=== PATIENT | male | born 1945 | race Caucasian/White ===

== ENCOUNTER 2020-08-27 16:40 | Emergency (ER) | payer OTHER, MEDICAID ==
[~2020-08-27] VITALS: Ht 165.1 cm; Wt 70.3 kg
[2020-08-27 16:46] VITALS: BP 118/89
--- NOTE | 2020-08-27 16:51 | NUR ---
PT W/C ASSISTED TO BED 8.
--- NOTE | 2020-08-27 16:58 | NUR ---
PT CAME IN C/O LEFT KNEE PAIN. PRESENTS WITH SWELLING FOR 2 WEEKS. PT STATED HE FLEW TO [facility] FOR TREATMENT. HIS DOCTOR STATED THAT BY DRAWING AND INJECTING BLOOD INTO HIS KNEE, IT WOULD BUILD CARTILAGE. PT HAS BEEN TAKING TYLENOL FOR PAIN. RATES PAIN 10/10, DOES NOT RADIATE ANYWHERE, FEELS LIKE ITS THROBBING. VISIBLE AND PALPABLE SWELLING. NO SIGNIFICANT MEDICAL HISTORY, NKA. NO SOB, COUGH, CHEST PAIN, OR OTHER COVID SYMPTOMS. SKIN IS INTACT, PT ABLE TO AMBULATE BUT HAS EXTREME PAIN WITH MOVEMENT. PULSES ARE EVEN AND INTACT, PERFUSION BILTAERAL FEET.
--- NOTE | 2020-08-27 17:00 | NUR ---
Dr. Pierson is evaluating the patient at bedside.
[2020-08-27] MEDS ORDERED: LIDOCAINE MPF 1% 10 MG/ML VIAL INJ ONE (17:10)
--- NOTE | 2020-08-27 19:15 | NUR ---
Report received from SARAH Banerjee for continuation of care.
[2020-08-27 19:21] LABS: APPEARANCE,UNSPUN,BODY FLUID HAZY (CLEAR); SPECIMENTYPE,BODY FLUID SYNOVIAL
[2020-08-27 19:22] LABS: APPEARANCE,SPUN,BODY FLUID CLEAR (CLEAR); COLOR,BODY FLUID LT YELLOW (LT YELLOW)
[2020-08-27 19:23] LABS: RBC, BODY FLUID 36 /cu. mm.; TOTAL VOLUME,BODY FLUID 40 mL; WBC, BODY FLUID 14800 /cu. mm.
[2020-08-27 19:24] LABS: POLYNUCLEAR, BODY FLUID 71 %
[2020-08-27 19:42] VITALS: BP 121/87
--- NOTE | 2020-08-27 19:42 | NUR ---
Patient discharged with v/s stable. Written and verbal after care instructions given and explained. Patient verbalized understanding. Ambulatory with steady gait. All questions addressed prior to discharge. Advised to follow up with PMD.
[2020-08-28 02:13] LABS: GLUCOSE,BODY FLUID 60 mg/dL
== END 2020-08-27 19:42 | disposition home or self-care (01) ==
LOC: MED 16:40
DX: M25.462 Effusion, left knee (principal); M25.512 Pain in left shoulder
CPT/HCPCS: 20610; 36415; 73060; 82150; 82945; 84157; 87070; 87205; 89051; 99284; J2001

== ENCOUNTER 2020-08-29 11:33 | Emergency (ER) | payer OTHER, MEDICAID ==
[~2020-08-29] VITALS: Ht 172.7 cm; Wt 70.3 kg
[2020-08-29 11:40] VITALS: BP 128/73
[2020-08-29] MEDS ORDERED: LIDOCAINE MPF 1% 5 ML ONE (13:58)
[2020-08-29 15:01] LABS: BASOPHILS % (AUTO) 0.4 % (0.0-2.0); EOSINOPHILS # (AUTO) 0.2 K/uL (0-0.4); EOSINOPHILS % (AUTO) 2.6 % (0.0-4.0); HEMATOCRIT 39.9 % (36-52); HEMOGLOBIN 13.5 g/dL (12.0-18.0); LYMPHOCYTES % (AUTO) 22.7 % (20.5-51.1); MEAN CORPUSCULAR HEMOGLOBIN 31 pg (27-31); MEAN CORPUSCULAR HGB CONC 34 g/dL (33-37); MEAN CORPUSCULAR VOLUME 90.7 fL (80-94); MONOCYTES # (AUTO) 0.9 K/uL (0.8-1.0); MONOCYTES % (AUTO) 10.4 % (1.7-9.3); NEUTROPHILS # (AUTO) 5.6 K/uL (1.8-7.7); NEUTROPHILS % (AUTO) 63.9 % (42.2-75.2); PLATELET COUNT (AUTO) 250 K/uL (140-450); RED CELL DISTRIBUTION WIDTH 13.1 % (11.6-13.7); WHITE BLOOD COUNT (AUTO) 8.8 K/uL (4.8-10.8)
[2020-08-29 15:10] LABS: ANION GAP 9.8 (8-16); CHLORIDE 104 mmol/L (98-107); CREATININE 1.1 mg/dL (0.6-1.3); GLUCOSE 105 mg/dL (74-106); POTASSIUM 3.8 mmol/L (3.5-5.1); SODIUM SERUM 139 mmol/L (136-145); UREA NITROGEN, BLOOD 17 mg/dL (7-18)
[2020-08-29] MEDS ORDERED: KETOROLAC 30 MG/ML VIAL IVP ONE (15:20)
[2020-08-29 17:27] LABS: GLUCOSE,BODY FLUID 94 mg/dL
[2020-08-29 17:38] LABS: SPECIMENTYPE,BODY FLUID SYNOVIAL
[2020-08-29 17:40] LABS: COLOR,BODY FLUID YELLOW (LT YELLOW); TOTAL VOLUME,BODY FLUID 15 mL
[2020-08-29 17:41] LABS: APPEARANCE,UNSPUN,BODY FLUID HAZY (CLEAR)
[2020-08-29 18:42] LABS: APPEARANCE,SPUN,BODY FLUID CLEAR (CLEAR)
[2020-08-29 19:54] LABS: WBC, BODY FLUID 6800 /cu. mm.
[2020-08-29 20:48] LABS: POLYNUCLEAR, BODY FLUID 70 %; RBC, BODY FLUID 300 /cu. mm.
[2020-08-29 21:20] VITALS: BP 120/71
== END 2020-08-29 21:20 | disposition home or self-care (01) ==
LOC: MED 11:33
DX: M13.862 Other specified arthritis, left knee (principal); M25.462 Effusion, left knee; Z20.828 Contact with and (suspected) exposure to other viral communicable diseases
CPT/HCPCS: 20611; 36415; 73562; 80048; 82945; 84157; 85025; 85651; 86140; 87040; 87070; 87205; 87426; 89051; 96374; 99285; J1885; J2001; 20605; 87075

== ENCOUNTER 2020-10-04 14:57 | Emergency (ER) | payer OTHER, MEDICAID ==
[~2020-10-04] VITALS: Ht 172.7 cm; Wt 68.5 kg
[2020-10-04 15:17] VITALS: BP 133/72
--- NOTE | 2020-10-04 15:28 | NUR ---
DR WALLACE AT BEDSIDE FOR EVALUATION
--- NOTE | 2020-10-04 15:29 | NUR ---
74 Y/O MALE C/O 05/18 LEFT KNEE PAIN AND SWELLING X3 MONTHS, PT HAD TO HAVE FLUID FROM HIS KNEE ASPIRATED LAST MONTH. PT STATES PAIN IS PULSING NONRADITING PAIN. PT USUALLY TAKES TYLENOL BUT DENIES TAKING TODAY. PT DENIES TRAUMA/INJURY TO KNEE. ON ASSESSMENT, L KNEE IS SWOLLEN WITH +2 EQUAL PEDAL PULSES. PT IS A/O X4 WITH EVEN AND UNLABORED RESPIRATIONS. MED HX: EMPHYSEMA NKA
[2020-10-04] MEDS ORDERED: LIDOCAINE MPF 1% 10 MG/ML VIAL INJ ONE (15:40)
--- NOTE | 2020-10-04 15:43 | NUR ---
LAC TRAY AND ULTRA SOUND SET UP AT BED SIDE BED 12 ERMD NOTIFIED
--- NOTE | 2020-10-04 16:17 | NUR ---
DR WALLACE AT BEDSIDE FOR PROCEDURE
[2020-10-04] MEDS ORDERED: ACET-8386 PO (16:55)
[2020-10-04] MEDS ORDERED: IBUP-2213 PO (16:55)
[2020-10-04 17:06] VITALS: BP 133/72
--- NOTE | 2020-10-04 17:06 | NUR ---
Patient discharged with v/s stable. Written and verbal after care instructions given and explained. Patient alert, oriented and verbalized understanding of instructions. Ambulatory with steady gait. All questions addressed prior to discharge. ID band removed. Patient advised to follow up with PMD. Rx of IBUPROFEN 600MG PO TID PRN PAIN, AND HYDROCODONE -ACETAMINOPHEN Q6H PRN SEVERE PAIN given. Patient educated on indication of medication including possible reaction and side effects. Opportunity to ask questions provided and answered.
== END 2020-10-04 17:06 | disposition home or self-care (01) ==
LOC: MED 14:57
DX: M70.52 Other bursitis of knee, left knee (principal); Y93.89 Activity, other specified
CPT/HCPCS: 20611; 99284; J2001